=== PATIENT | male | born 1965 | race Hispanic/Latino ===

== ENCOUNTER 2018-12-02 03:08 | Emergency (ER) | payer SELFPAY ==
[2018-12-02] MEDS ORDERED: HYDROCODONE/ACETAMINOPHEN 10/325 MG TAB ONE (04:03)
== END 2018-12-02 05:04 | disposition home or self-care (01) ==
LOC: EDH 03:08
DX: S43.141A Inferior dislocation of right acromioclavicular joint, initial encounter (principal); I10 Essential (primary) hypertension; E11.9 Type 2 diabetes mellitus without complications; W20.8XXA Other cause of strike by thrown, projected or falling object, initial encounter; Y93.89 Activity, other specified; Y92.69 Other specified industrial and construction area as the place of occurrence of the external cause; Y99.8 Other external cause status
CPT/HCPCS: 71045; 73030

== ENCOUNTER 2022-05-18 10:22 | Emergency (ER) | payer OTHER ==
[~2022-05-18] VITALS: Ht 167.6 cm; Wt 87.5 kg
[2022-05-18 11:08] LABS: BASOPHILS % (AUTO) 0.4 % (0.0-5.0); EOSINOPHILS % (AUTO) 1.9 % (0.0-8.0); HEMATOCRIT 41.5 % (42-54); LYMPHOCYTES % (AUTO) 23.7 % (21.0-51.0); MEAN CORPUSCULAR HEMOGLOBIN 30.6 pg (27.0-33.0); MEAN CORPUSCULAR HGB CONC 35.7 g/dL (32.0-36.0); MEAN CORPUSCULAR VOLUME 85.7 fL (79-99); MONOCYTES % (AUTO) 8.6 % (3.0-13.0); PLATELET COUNT (AUTO) 141 K/uL (130-400); RED BLOOD CELL COUNT(AUTO) 4.84 MIL/uL (4.50-6.20); RED CELL DISTRIBUTION WIDTH 12.3 % (11.0-15.5); WHITE BLOOD COUNT (AUTO) 5.4 K/uL (4.8-10.8)
[2022-05-18 11:21] LABS: POTASSIUM 3.9 mmol/L (3.5-5.1)
[2022-05-18 11:25] LABS: ALBUMIN 3.7 g/dL (3.5-5.0)
[2022-05-18 12:35] LABS: APPEARANCE,URINE CLEAR (CLEAR); BILIRUBIN,URINE NEGATIVE (NEGATIVE); COLOR,URINE LIGHT-YELLOW (YELLOW); GLUCOSE, URINE (UA) >=1000 mg/dL (NEGATIVE); KETONES,URINE NEGATIVE (NEGATIVE); LEUKOCYTE ESTERASE ,URINE 25 Leu/uL (NEGATIVE); NITRATE,URINE NEGATIVE (NEGATIVE); OCCULT BLOOD,URINE SMALL (NEGATIVE); PROTEIN,URINE 20 mg/dL (NEGATIVE); UROBILINOGEN,URINE 0.2 mg/dL (0.2-1.0)
[2022-05-18 12:52] LABS: SQUAMOUS EPITHELIAL CELL,UR RARE /HPF (0-2)
[2022-05-18] MEDS ORDERED: 0.9%NACL 1000ML 1,000 ML IV ONE (13:00)
[2022-05-18 14:09] LABS: HEMOGLOBIN A1C 9.3 % (4.0-6.0)
[2022-05-18 14:58] VITALS: BP 168/81
== END 2022-05-18 15:51 | disposition left against medical advice (07) ==
LOC: EDH 10:22
DX: E11.65 Type 2 diabetes mellitus with hyperglycemia (principal); E86.0 Dehydration; E11.40 Type 2 diabetes mellitus with diabetic neuropathy, unspecified; G45.9 Transient cerebral ischemic attack, unspecified
CPT/HCPCS: 99285; 96360; 70450; 83036; 84484; 80053; 85025; 81001; 36415; 93005; J7030

== ENCOUNTER 2023-05-10 16:28 | Emergency (ER) | payer OTHER ==
[~2023-05-10] VITALS: Ht 167.6 cm; Wt 81.6 kg
[2023-05-10 17:43] VITALS: BP 155/102; PULSE 88; RESP 20
[2023-05-10] MEDS ORDERED: NAPROXEN 500 MG TABLET PO ONE (18:30)
== END 2023-05-10 19:47 | disposition left against medical advice (07) ==
LOC: EDH 16:28
DX: S39.82XA Other specified injuries of lower back, initial encounter (principal); W50.1XXA Accidental kick by another person, initial encounter; Y93.89 Activity, other specified; Y92.89 Other specified places as the place of occurrence of the external cause; Y99.8 Other external cause status
CPT/HCPCS: 99281